=== PATIENT | male | born 1965 | race Caucasian/White ===

== ENCOUNTER 2018-03-15 12:37 | Emergency (ER) | payer BC, OTHER ==
[~2018-03-15] VITALS: Ht 175.3 cm; Wt 103.2 kg
[2018-03-15 12:39] VITALS: TEMP 36.9; Ht 175.3 cm; Wt 103.2 kg
[2018-03-15] MEDS ORDERED: ONDANSETRON INJ 2 MG/ML 2 ML VIAL IV STA (12:54)
[2018-03-15] MEDS ORDERED: KETOROLAC TROMETHAMINE 30 MG/ML VIAL IV STA (12:54)
[2018-03-15 13:12] LABS: BASO % 0.1 %; BASO ABS # 0.02 K/uL (0-0.2); EOS % 0.1 %; EOS ABS # 0.01 K/uL (0-0.5); HEMATOCRIT 48.6 % (42-52); HEMOGLOBIN 16.4 g/dL (14.0-18.0); IG# 0.04 K/uL (0.00-0.02); LYMPH ABS # 1.12 K/uL (1.2-3.4); MEAN CELL VOLUME 91.7 fL (80-100); MEAN CORPUSCULAR HEMOGLOBIN 30.9 pg (25-34); MEAN CORPUSCULAR HGB CONC 33.7 g/dl (32-36); MONO % 8.5 %; MONO ABS # 1.19 K/uL (0.11-0.59); NEUT ABS # 11.61 K/uL (1.4-6.5); PLATELET COUNT 231 K/uL (130-400); RED CELL DISTRIBUTION WIDTH CV 13.5 % (11.5-14.5); RED CELL DISTRIBUTION WIDTH SD 45.5 fL (36.4-46.3); WHITE BLOOD COUNT 13.99 K/uL (4.8-10.8)
[2018-03-15 13:28] LABS: CALCIUM 8.9 mg/dl (8.5-10.1); CREATININE 1.4 mg/dl (0.60-1.40); POTASSIUM 3.9 mmol/L (3.5-5.1)
--- NOTE | 2018-03-15 13:28 | DIAGNOSTIC IMAGING REPORT ---
CT SCAN OF THE ABDOMEN AND PELVIS WITHOUT CONTRAST CLINICAL HISTORY: Left flank and abdominal pain COMPARISON STUDY: No previous studies for comparison. TECHNIQUE: CT scan of the abdomen and pelvis was performed from the lung bases to the proximal femurs. Images are reviewed in the axial, sagittal, and coronal planes. IV contrast was not administered for this examination. A dose lowering technique was utilized adhering to the principles of ALARA. CT DOSE: 884.56 mGy.cm FINDINGS: Lower chest: There is a small hiatal hernia. Liver: The unenhanced liver is normal in size, contour, and attenuation. There is no intrahepatic biliary ductal dilatation. Gallbladder: Unremarkable. Spleen: Normal in size and attenuation. Pancreas: Unremarkable. Adrenal glands: Unremarkable. Kidneys: No renal calculi are visualized. There is mild left-sided hydronephrosis and hydroureter. There is a 2 x 2 x 3 mm proximal left ureteral calculus at the inferior L3 level. Bowel: There are no transition zones indicate bowel obstruction. The appendix appears normal. There is no evidence of acute diverticulitis. Peritoneum: There is no intraperitoneal free air or abdominal ascites. Vasculature: The abdominal aorta is normal in course and caliber. Adenopathy: None. Pelvic viscera: The bladder, and pelvic viscera are unremarkable. Skeletal structures: Postsurgical changes are present within the lumbar spine. IMPRESSION: 1. 2 x 2 x 3 mm proximal left ureteral calculus with mild secondary obstructive changes 2. No evidence of bowel obstruction. No evidence of free air 3. Normal appendix. No evidence of acute diverticulitis. Electronically signed by: Felipe Ramírez M.D. 03/15/2018 1:26 PM Dictated Date/Time: 03/15/2018 1:22 PM
[2018-03-15] MEDS ORDERED: TAMS0.4C38 PO (13:48)
[2018-03-15] MEDS ORDERED: HYDR-5688 PO (13:49)
[2018-03-15 14:32] VITALS: BP 107/62; PULSE 68; O2SAT 95
--- NOTE | 2018-03-15 17:29 | EMERGENCY ROOM VISIT NOTE ---
ED Visit Note First contact with patient: 12:44 CHIEF COMPLAINT: Flank and abdominal pain today HISTORY OF PRESENT ILLNESS: This 52-year-old white male patient had sudden onset of pain in the left flank and left lower quadrant of the abdomen 2 days ago. He had hematuria at that time as well. He states the pain was fairly intense yesterday and last evening. Pain is currently rated as 7/10. It does radiate from the flank to the left lower abdomen. He states there is no hematuria today. There is nausea but no vomiting. The patient has not noticed any increased frequency or pain with urination recently. There is no history of kidney stones. The pain is steady and severe. No family history of kidney stones. No treatment yet. REVIEW OF SYSTEM: HEENT: No dizziness, visual problems, hearing loss, or tinnitus. There is no difficulty swallowing and no oral lesions are present. LYMPH: No adenopathy. PULMONARY: No cough, shortness of breath, sputum production or hemoptysis. CARDIOVASCULAR: No chest pain, palpitations, shortness of breath or peripheral edema. GASTROINTESTINAL: No diarrhea, constipation, nausea, vomiting, or abdominal pain. GENITOURINARY: No dysuria, frequency, urgency or nocturia. NEUROLOGIC: No weakness, muscle tenderness, epilepsy or history of neurological problems. MUSCULOSKELETAL: No history of joint tenderness/swelling. No history of arthritis or arthralgias. SKIN: No rashes or lesions. PSYCHIATRIC: No history of depression or mental illness. ENDOCRINE: No history of diabetes, thyroid disorders, or abnormal hair growth. PMH: Supplemental sheet was reviewed and signed. Previous surgeries: None Medical history: Benign Current medications: None Allergies: NKDA Family history: Noncontributory. SOCIAL HISTORY: Patient lives at home. Non-smoker, no excessive alcohol use. PHYSICAL EXAM: Vital Signs: Afebrile. Reviewed and filed in patient's chart. general: Well-developed, well-nourished, middle-aged white male, in obvious discomfort. He is sitting on the bed. Alert and oriented. The patient is restless. Skin: Warm and dry with good turgor. No rashes or lesions. No ecchymosis or erythema. The patient is not diaphoretic. No abrasions. HEART: Regular rate and rhythm without murmurs, ectopy, gallops, or rubs. Peripheral pulses are 2+. LUNGS: Clear to auscultation and breath sounds equal. No wheezes , rales, or rhonchi. Good air movement. ABDOMEN: Soft, non-tender, no hepato- splenomegaly, or masses. There is left CVA tenderness. NEUROLOGICAL: Sensory and motor functions grossly intact. EYES: PERRL, EOMI, no discharge or injection. EMERGENCY DEPARTMENT COURSE: Urinalysis shows hematuria. CT scan of the abdomen and pelvis without contrast shows a 2 mm x 2 mm x 3 mm stone in the proximal left ureter. Moderate hydronephrosis. CBC obtained today shows a mild white count at 13.9. PRP is unremarkable. The patient was given Toradol 30 mg IV and Zofran 4 mg IV for the pain. He was also hydrated with 1 L normal sterile saline IV bolus. The pain had almost disappeared by the time of discharge. DIAGNOSIS: Left ureterolithiasis DISCHARGE INSTRUCTIONS AND TREATMENT: The patient was educated regarding today' s findings. Conservative care measures were discussed. High fluid intake, strain all urine passed over the next 2 days and bring any solid particles you find to your urologist or PCP for analysis. Prescription was given for [place], 1 tablets every 6 hours if needed for pain. Driving precautions were given. He was also prescribed Flomax 0.4 mg to be taken daily until the stone passes. Return to the ER if the pain becomes severe. Kidney stone handout was provided. He was reassured that I do not suspect UTI, nephritis, or obstructing stone. (Cesar Gonzalez,P.A.) First contact with patient: 12:44 (Henri Andrade M.D.) Current/Historical Medications Scheduled Tamsulosin Hcl (Flomax), 0.4 MG PO DAILY Scheduled PRN Hydrocodone/Acetaminophen 5MG/325MG ([place] 5MG/325MG), 1 TAB PO Q6 PRN for Pain Allergies Coded Allergies: No Known Allergies (Verified Allergy, Unknown, 09/11/04) Vital Signs Date Time Temp Pulse Resp B/P (MAP) Pulse Ox O2 Delivery O2 Flow Rate FiO2 03/15/18 14:32 68 18 107/62 95 03/15/18 13:45 78 16 102/61 96 Room Air 03/15/18 12:39 36.9 85 18 136/82 98 Room Air (Henri Andrade M.D.) Laboratory Results 03/15/18 13:00 Red Blood Count 5.30, Mean Corpuscular Volume 91.7, Mean Corpuscular Hemoglobin 30.9, Mean Corpuscular Hemoglobin Concent 33.7, Mean Platelet Volume 11.0, Neutrophils (%) (Auto) 83.0, Lymphocytes (%) (Auto) 8.0, Monocytes (%) (Auto) 8.5, Eosinophils (%) (Auto) 0.1, Basophils (%) (Auto) 0.1, Neutrophils # (Auto) 11.61, Lymphocytes # (Auto) 1.12, Monocytes # (Auto) 1.19, Eosinophils # (Auto) 0.01, Basophils # (Auto) 0.02 03/15/18 13:00 Test 03/15/18 13:00 White Blood Count 13.99 K/uL (4.8-10.8) Red Blood Count 5.30 M/uL (4.7-6.1) Hemoglobin 16.4 g/dL (14.0-18.0) Hematocrit 48.6 % (42-52) Mean Corpuscular Volume 91.7 fL (80-100) Mean Corpuscular Hemoglobin 30.9 pg (25-34) Mean Corpuscular Hemoglobin Concent 33.7 g/dl (32-36) Platelet Count 231 K/uL (130-400) Mean Platelet Volume 11.0 fL (7.4-10.4) Neutrophils (%) (Auto) 83.0 % Lymphocytes (%) (Auto) 8.0 % Monocytes (%) (Auto) 8.5 % Eosinophils (%) (Auto) 0.1 % Basophils (%) (Auto) 0.1 % Neutrophils # (Auto) 11.61 K/uL (1.4-6.5) Lymphocytes # (Auto) 1.12 K/uL (1.2-3.4) Monocytes # (Auto) 1.19 K/uL (0.11-0.59) Eosinophils # (Auto) 0.01 K/uL (0-0.5) Basophils # (Auto) 0.02 K/uL (0-0.2) RDW Standard Deviation 45.5 fL (36.4-46.3) RDW Coefficient of Variation 13.5 % (11.5-14.5) Immature Granulocyte % (Auto) 0.3 % Immature Granulocyte # (Auto) 0.04 K/uL (0.00-0.02) Anion Gap 10.0 mmol/L (3-11) Est Creatinine Clear Calc Drug Dose 72.3 ml/min Estimated GFR () 66.0 Estimated GFR (Non- 57.0 BUN/Creatinine Ratio 16.2 (10-20) Calcium Level 8.9 mg/dl (8.5-10.1) (Henri Andrade M.D.) Medications Administered Medications (Trade) Dose Ordered Sig/Alberto Route Start Time Stop Time Status Last Admin Dose Admin Ondansetron HCl (Zofran Inj) 4 mg NOW STAT IV 03/15/18 12:54 03/15/18 12:57 DC 03/15/18 13:12 4 MG Ketorolac Tromethamine (Toradol Inj) 30 mg NOW STAT IV 03/15/18 12:54 03/15/18 12:57 DC 03/15/18 13:12 30 MG (Henri Andrade M.D.) Departure Information Prescriptions Hydrocodone/Acetaminophen 5MG/325MG ([place] 5MG/325MG) Tab 1 TAB PO Q6 Y for Pain, #12 TAB PRN PAIN Prov: Cesar Gonzalez,P.A. 03/15/18 Tamsulosin Hcl (FLOMAX) 0.4 Mg Cap 0.4 MG PO DAILY, #5 CAP Prov: Cesar Gonzalez,P.A. 03/15/18 Referrals No Doctor, Assigned (PCP) Patient Instructions [facility]
== END 2018-03-15 14:33 | disposition home or self-care (01) ==
LOC: C.EDB 12:39 → C.EDA 14:33
DX: N20.1 Calculus of ureter (principal)